=== PATIENT | female | born 1955 | race Caucasian/White ===

== ENCOUNTER → 2023-08-31 12:39 | Outpatient (REF) | payer OTHER, SELFPAY | LOC: RAD 12:39 | PROVIDERS: ATTENDING PHYSICIAN Family Medicine | DX: Z87.891 Personal history of nicotine dependence (principal); F17.200 Nicotine dependence, unspecified, uncomplicated | CPT/HCPCS: 71271 ==

== ENCOUNTER 2023-11-24 02:39 | Emergency (ER) | payer OTHER, SELFPAY ==
[2023-11-24 02:41] VITALS: BP 169/87
--- NOTE | 2023-11-24 03:04 | ED.GENMED ---
History of Present Illness
<VINICIUS Sebastian - Last Filed: 11/24/23 05:38>
General
Chief Complaint: Back Pain
Time Seen by Provider: 11/24/23 02:51
History of Present Illness
History of Present Illness:
Pt is a 68 y/o female presenting for abdominal pain x3 hours. She states the pain started in her left flank and woke her up from sleep. The pain then radiated to her abdomen in the left lower quadrant. She states the flank pain has subsided but the
abdominal pain is an 8/10. She states it occurs all the time and she has not tried anything her alleviate her symptoms. She also admits to nausea and vomiting. She admits to two episodes of nonbloody, nonbilious vomiting. She states the nausea comes
and goes. She states she has a hx of kidney stones in the past. She denies any dysuria, hematuria, hematochezia, fever, chills, SOB, CP.
Past History
<IVNICIUS Sebastian - Last Filed: 11/24/23 05:38>
Past History
ED Past Medical History: Other (Rheumatoid arthritis,)
Social History
Tobacco: Smoker
Alcohol: Daily ( limitations, left bundle branch block)
Family History
Family History: Other (CVA, father with Hodgkin's brother with Hodgkin's and a stroke)
Phy Exam
<VINICIUS Sebastian - Last Filed: 11/24/23 05:38>
Physical Exam
Physical Exam:
GENERAL: Alert , uncomfortable appearing.
EYE: pupils equal and reactive
Throat: Airway intact, no exudates
NECK: Supple, no significant adenopathy.
CARDIAC: Regular rate and rhythm .
LUNGS: Clear breath sounds bilaterally, no acute respiratory distress, no wheezes/rales/rhonchi
ABDOMEN: Mild pain with palpation to the LLQ/left suprapubic area. Soft, nondistended, no cvat
NEUROLOGICAL: Alert and oriented, no focal neuro deficits
SKIN: Warm and dry, skin intact.
MUSCULOSKELETAL: No edema, well perfused.
PSYCH: Normal and appropriate interaction.
Course
<Perez Roe [facility] - Last Filed: 11/24/23 05:38>
Orders/Labs/Results
Orders:
Orders
11/24/23 03:24
0.9% Sodium Chloride 1000 ml [Nss] 1,000 ml IV BOLUS
Ketorolac [Toradol] 15 mg IV NOW STA
Ondansetron Injectable [Zofran] 4 mg IV NOW STA
11/24/23 03:25
CT Abd/pel Without Iv Or Oral Urgent
Comment:
Reason For Exam: left flank pain
11/24/23 03:42
Basic Metabolic Panel Urgent
Complete Blood Count/With Diff Urgent
Urinalysis Reflex To Culture Urgent
Date Specimen was Collected: 11/24/23
Time Specimen was Collected: 03:39
Urine Microscopic Reflex Cult Urgent
Abnormal Lab Results
11/24/23
03:42
MCH 33.1 H pg
(27.0-31.0)
MPV 11.2 H fL
(7.4-10.4)
Absolute Neuts (auto) 6.8 H 10^3/uL
(1.4-6.5)
Neutrophils % 77.6 H %
(42.2-75.2)
Lymphocytes % 15.7 L %
(20.5-51.1)
Glucose 144 H mg/dl
(70-99)
Ur Occult Blood Reflex 1+ A
(Negative)
Urine RBC 11-15 A /HPF
(0-2)
Urine Bacteria (Reflex) Few A
(Negative)
Urine Glucose 3+ A
(Negative)
11/24/23 03:42
11/24/23 03:42
Vital Signs
Initial and Last Documented VS:
Initial Vital Signs
Temp Pulse Resp BP Pulse Ox
98.7 F 70 16 169/87 98
11/24/23 02:41 11/24/23 02:41 11/24/23 02:41 11/24/23 02:41 11/24/23 02:41
Last Documented Vital Signs
Temp Pulse Resp BP Pulse Ox
98.7 F 79 18 125/56 96
11/24/23 02:41 11/24/23 04:49 11/24/23 04:49 11/24/23 04:49 11/24/23 04:49
cristina;Tadeo St, - Last Filed: 11/24/23 06:06>
Orders/Labs/Results
Orders:
Orders
11/24/23 03:24
0.9% Sodium Chloride 1000 ml [Nss] 1,000 ml IV BOLUS
Ketorolac [Toradol] 15 mg IV NOW STA
Ondansetron Injectable [Zofran] 4 mg IV NOW STA
11/24/23 03:25
CT Abd/pel Without Iv Or Oral Urgent
Comment:
Reason For Exam: left flank pain
11/24/23 03:42
Basic Metabolic Panel Urgent
Complete Blood Count/With Diff Urgent
Urinalysis Reflex To Culture Urgent
Date Specimen was Collected: 11/24/23
Time Specimen was Collected: 03:39
Urine Microscopic Reflex Cult Urgent
Abnormal Lab Results
11/24/23
03:42
MCH 33.1 H pg
(27.0-31.0)
MPV 11.2 H fL
(7.4-10.4)
Absolute Neuts (auto) 6.8 H 10^3/uL
(1.4-6.5)
Neutrophils % 77.6 H %
(42.2-75.2)
Lymphocytes % 15.7 L %
(20.5-51.1)
Glucose 144 H mg/dl
(70-99)
Ur Occult Blood Reflex 1+ A
(Negative)
Urine RBC 11-15 A /HPF
(0-2)
Urine Bacteria (Reflex) Few A
(Negative)
Urine Glucose 3+ A
(Negative)
11/24/23 03:42
11/24/23 03:42
Vital Signs
Initial and Last Documented VS:
Initial Vital Signs
Temp Pulse Resp BP Pulse Ox
98.7 F 70 16 169/87 98
11/24/23 02:41 11/24/23 02:41 11/24/23 02:41 11/24/23 02:41 11/24/23 02:41
Last Documented Vital Signs
Temp Pulse Resp BP Pulse Ox
98.7 F 79 18 125/56 96
11/24/23 02:41 11/24/23 04:49 11/24/23 04:49 11/24/23 04:49 11/24/23 04:49
<VINICIUS Sebastian - Last Filed: 11/24/23 05:38>
*Radiology
Radiology exam reviewed: radiology read reviewed
*Pulse Oximetry
Patient hypoxic: no
*EKG
Interpreted by ED Provider?: NA
*Property And Supply Officer Interpretation
Rate: Property And Supply Officer- N/A
*Critical Care Note
Total Time (30-74mins, 75-104mins- exclusive of procedures): Not Applicable
<VINICIUS Sebastian - Last Filed: 11/24/23 05:38>
Update Note
Update Note:
0435: patient is doing well after Toradol and Zofran. She currently reports no pain or nausea.
ED Attending Note
<VINICIUS Sebastian - Last Filed: 11/24/23 05:38>
-
Portions of this chart may have been created with voice recognition software.� Occasional wrong word or��sound alike� substitutions may have occurred due to the inherent limitations of voice recognition software.
<Tadeo MaryamLouis St DO - Last Filed: 11/24/23 06:06>
ED Attending Note
Patient seen and examined by attending physician: Yes
I performed the substantive portion of visit, reviewed & personally made and approve the management plan that is documented in note by myself or NAUN.: Yes
ED Attending Note:
I reviewed Perez's note.
Patient presents with left flank pain that radiates to the lower abdomen. Pain began suddenly this morning.
General: Awake, Alert, Oriented X3. Appears uncomfortable
Vitals: unremarkable
Head: Atraumatic
Eyes: Pupils equal, EOMI
Throat: Airway intact, no exudates
Neck: Trachea midline
Lungs: Clear and equal b/l
Heart: Regular rate, no murmurs
Abd: Soft, mild left upper quadrant tenderness to palpation, No pulsatile mass
Back: Mild left CVA tenderness
Neuro: Nonfocal
Skin: Warm, dry, no rash
Extremities: pulses equal b/l, no edema
CT confirms presence of stone. No evidence for infection. Stable for outpt management.
Discharge Plan
Departure
Patient Disposition: Home (Routine Discharge)
Date of Disposition: 11/24/23
Time of Disposition: 05:59
Patient with high blood pressure during this ER visit?: No
Condition: Good
Discharge Problem:
Kidney stone on left side
Instructions: Kidney Stone, Adult ED
Prescriptions:
New
oxycodone 5 mg tablet
5 mg PO Q6H PRN (Reason: Pain) Qty: 12 0RF
ondansetron 4 mg tablet,disintegrating
4 mg PO TID PRN (Reason: nausea and vomiting) 2 Days Qty: 6 0RF
No Action
aspirin 81 MG tablet,delayed release (DR/EC)
81 mg PO DAILY
buspirone 10 MG tablet
10 mg PO TID
metoprolol tartrate 25 MG tablet
25 mg PO DAILY
tofacitinib [Xeljanz] 5 MG tablet
5 mg PO DAILY
Welbutrin
1 tab PO DAILY
omeprazole 20 MG capsule,delayed release(DR/EC)
20 mg PO DAILY Qty: 30 0RF
lorazepam 1 MG tablet
1 mg PO TID PRN (Reason: anxiety) Qty: 15 0RF
Referrals:
Chriss Velarde MD [Active] -
UNKNOWN - PT NOT,INTERVIEWE [Unknown Provider] -
Activity Restrictions/Additional Instructions:
Return for fever
Interventions
Interventions:
*Risk Screen - Suicide Last Done: 11/24/23 02:41
*General Assessment Last Done: 11/24/23 02:41
*Neglect/Abuse Screening Last Done: 11/24/23 02:41
ED- Fall Risk Assessment Last Done: 11/24/23 03:51
*ED COVID-19 Vaccine History Last Done: 11/24/23 03:49
EO-Igcdfn-Amzoqzsstw Assessment Last Done: 11/24/23 03:49
ED-Musculoskeletal Assessment Last Done: 11/24/23 03:49
Discharge Date and Time
Print Language: KOREAN
[2023-11-24] MEDS: ZOFRAN 4 MG IV (03:39)
[2023-11-24] MEDS: TORADOL 15 MG IV (03:40)
[2023-11-24] MEDS: NSS 1000 IV (03:40)
[2023-11-24 03:48] VITALS: BMI 24.6
[2023-11-24 03:52] LABS: % Basophils 0.6 % (0-2); % Eosinophils 1.4 % (0-6); % Immature Granulocytes 0.5 % (0-0.5); % Lymphocytes 15.7 % (20.5-51.1); % Monocytes 4.2 % (1.7-9.3); % Neutrophils 77.6 % (42.2-75.2); Absolute Basophils 0.1 10^3/uL (0-0.2); Absolute Eosinophils 0.1 10^3/uL (0-0.7); Absolute Lymphocytes 1.4 10^3/uL (1.2-3.4); Absolute Monocytes 0.4 10^3/uL (0.1-0.6); Absolute Neutrophils 6.8 10^3/uL (1.4-6.5); Hematocrit 44.6 % (37.0-47.0); Hemoglobin 15.3 g/dL (12.0-16.0); Mean Corp Hgb Conc. 34.3 g/dL (33.0-37.0); Mean Corpuscular Hgb 33.1 pg (27.0-31.0); Mean Corpuscular Volume 96.5 fL (81.0-99.0); Mean Platelet Volume 11.2 fL (7.4-10.4); Nucleated Red Blood Cells % 0 %; Platelet Count 169 10^3/uL (130-400); Red Blood Cell Count 4.62 10^6/uL (4.20-5.40); Red Cell Dist. Width 13.8 % (11.5-14.5); White Blood Cell Count 8.7 10^3/uL (4.8-10.8)
[2023-11-24 03:53] LABS: Urine Albumin Negative (Neg - Trace); Urine Bilirubin Negative (Negative); Urine Character Clear (Clear); Urine Color Yellow; Urine Glucose 3+ (Negative); Urine Ketone Negative (Negative); Urine Leukocyte Negative (Negative); Urine Nitrite Negative (Negative); Urine Occult Blood 1+ (Negative); Urine Urobilinogen Negative (Neg - 1+)
[2023-11-24 04:04] LABS: Urine Bacteria Few (Negative); Urine White Cell 0-2 /HPF (0-5)
[2023-11-24 04:08] LABS: Blood Urea Nitrogen 15 mg/dl (7-17); Calcium 9.5 mg/dl (8.4-10.2); Carbon Dioxide 25 mmol/L (22-30); Chloride 106 mmol/L (98-107); Estimated Creatinine Clearance 56 ml/min; Glucose 144 mg/dl (70-99); Potassium 4.1 mmol/L (3.5-5.1); Sodium 138 mmol/L (135-145); eGFR > 60.00
[2023-11-24 04:49] VITALS: BP 125/56
[2023-11-24 06:02] VITALS: BP 134/78
== END 2023-11-24 06:23 | disposition home or self-care (01) ==
LOC: EMR 02:39
PROVIDERS: EMERGENCY PHYSICIAN Emergency Medicine; FAMILY PHYSICIAN Family Medicine
DX: R10.9 Unspecified abdominal pain (principal)
CPT/HCPCS: 99284; 96374; 96375; 96361; 74176; 80048; 81003; 81015; 85025

== ENCOUNTER → 2025-02-09 09:47 | Outpatient (REF) | payer OTHER, SELFPAY | LOC: WDC 09:47 | PROVIDERS: ATTENDING PHYSICIAN Family Medicine; FAMILY PHYSICIAN Family Medicine | DX: Z13.820 Encounter for screening for osteoporosis (principal); Z12.31 Encounter for screening mammogram for malignant neoplasm of breast; M81.0 Age-related osteoporosis without current pathological fracture | CPT/HCPCS: 77063; 77067; 77080 ==

== ENCOUNTER → 2025-02-20 11:01 | Outpatient (REF) | payer OTHER, SELFPAY | LOC: RCS 11:01 | PROVIDERS: ATTENDING PHYSICIAN Internal Medicine Cardiovascular Disease; FAMILY PHYSICIAN Family Medicine | DX: I42.8 Other cardiomyopathies (principal) | CPT/HCPCS: 93306 ==